=== PATIENT | female | born 1970 | race Caucasian/White ===

== ENCOUNTER 2016-12-31 16:36 | Emergency (ER) | payer OTHER ==
[2016-12-31 16:43] VITALS: BP 113/77
--- NOTE | 2016-12-31 16:53 | UC ---
Throat Pain/Nasal Shad HPI - HPI Summary HPI Summary: 46 Y/O female presents with complaint of throat pain x 10 days. States began as an URI which has resolved. Pain in throat has increased over the last several days. Denies fever but states had chills earlier today. Able to swallow food and liquids without difficulty. - History of Current Complaint Chief Complaint: UCRespiratory Stated Complaint: SOAR THROAT Time Seen by Provider: 12/31/16 16:45 Hx Obtained From: Patient ?: No Onset/Duration: Gradual Onset, Lasting Weeks Severity: Moderate Pain Intensity: 7 Pain Scale Used: 0-10 Numeric Associated Signs & Symptoms: Positive: Negative - Epiglottits Risk Factors Epiglottis Risk Factors: Negative - Allergies/Home Medications Allergies/Adverse Reactions: Allergies Allergy/AdvReac Type Severity Reaction Status Date / Time Thimerosal Allergy Unknown Tested Verified 05/18/16 10:49 positive adhesives Allergy Mild Rash Uncoded 05/18/16 10:49 Home Medications: Home Medications Levothyroxine TAB* [Synthroid TAB*] 88 mcg PO 0800 12/31/16 [History Confirmed 12/31/16] PMH/Surg Hx/FS Hx/Imm Hx Previously Healthy: Yes - Surgical History Surgical History: Yes Surgery Procedure, Year, and Place: endometriosis - Social History Alcohol Use: Rare Substance Use Type: None Smoking Status (MU): Never Smoked Tobacco - Immunization History Most Recent Tetanus Shot: 10/2011 Review of Systems Constitutional: Chills Skin: Negative Eyes: Negative ENT: Sore Throat Respiratory: Negative Cardiovascular: Negative Gastrointestinal: Negative Genitourinary: Negative Motor: Negative Neurovascular: Negative Musculoskeletal: Negative Neurological: Negative Psychological: Negative All Other Systems Reviewed And Are Negative: Yes Physical Exam Triage Information Reviewed: Yes Appearance: Well-Appearing Vital Signs: Initial Vital Signs Temp 98.6 F 12/31/16 16:39 Pulse 84 12/31/16 16:39 Resp 18 12/31/16 16:39 BP 113/77 12/31/16 16:39 Pulse Ox 100 12/31/16 16:39 Vital Signs Reviewed: Yes Eye Exam: Normal ENT: Positive: Pharyngeal erythema, Tonsillar exudate Neck exam: Normal Neck: Positive: Supple, No Lymphadenopathy Respiratory Exam: Normal Respiratory: Positive: Lungs clear Cardiovascular Exam: Normal Cardiovascular: Positive: RRR Musculoskeletal Exam: Normal Neurological Exam: Normal Psychological Exam: Normal Skin Exam: Normal Throat Pain/Nasal Course/Dx - Differential Dx/Diagnosis Differential Diagnosis/HQI/PQRI: Pharyngitis, Tonsillitis Provider Diagnoses: Strep throat Discharge - Discharge Plan Condition: Stable Disposition: HOME Patient Education Materials: Strep Throat (ED) Additional Instructions: Your strep screen was positive. Please take antibiotics as directed and complete the full course as prescribed. Follow up with urgent care or your primary medical provider if you have worsening symptoms or have difficulty swallowing.
== END 2016-12-31 17:13 | disposition home or self-care (01) ==
LOC: UCEAST 16:36
DX: J02.0 Streptococcal pharyngitis (principal)
CPT/HCPCS: 87651; 99212; G0463